=== PATIENT | female | born 1960 | race African-American/Black ===

== ENCOUNTER 2016-11-10 09:43 | Day surgery (SDC) | payer OTHER ==
[2016-10-29 12:24] VITALS: BMI 21.5
[2016-11-10] MEDS ORDERED: ACETAMINOPHEN 325 MG TABLET (FP) PO PRN (14:18)
[2016-11-10] MEDS ORDERED: ONDANSETRON 4 MG/2 ML VIAL IVPUSH PRN (14:19)
[2016-11-10] MEDS: ACETAMINOPHEN 325 MG TABLET (FP) PO PRN (21:44)
[2016-11-10] MEDS ORDERED: traMADol HCL 50 MG TABLET PO ONE ×2 (23:19→23:45)
[2016-11-11] MEDS: ACETAMINOPHEN 325 MG TABLET (FP) PO PRN (04:32)
[2016-11-11 06:21] VITALS: BP 118/54; PULSE 77; TEMP 98.6
[2016-11-11] MEDS ORDERED: traMADol HCL 50 MG TABLET PO ONE (08:40)
--- NOTE | 2016-11-11 10:50 | OP ---
DATE OF OPERATION: 11/10/2016 PREOPERATIVE DIAGNOSIS: Impingement syndrome, rotator cuff tear, right shoulder. POSTOPERATIVE DIAGNOSIS: Impingement syndrome, rotator cuff tear, SLA p tear, right shoulder. PROCEDURE: Right shoulder arthroscopy, debridement of superior labral tear, bursectomy, rotator cuff repair, acromioplasty, and modified distal clavicle excision. SURGEON: Darin Pringle MD GRINDER SET UP OPERATOR INTERNAL: CRISS Covarrubias FINDINGS AND PROCEDURE: The patient was seen in the preoperative holding area, where the right shoulder was marked, informed consent was obtained. An interscalene lock was administered by the anesthesia team. The patient was then brought to the operating room and placed on the table in the beach-chair position. Intravenous sedation was given. The right shoulder was painted with ChloraPrep. Then, 7 mL of 1% lidocaine with epinephrine was injected into the posterior portal region. An 18-gauge spinal needle was used to introduce 40 mL of 1:100,000 epinephrine mixed in normal saline into the glenohumeral joint. The right shoulder was then prepped and free draped in sterile fashion. A time-out was performed identifying the patient and the correct surgical sight. A posterior portal was established, and diagnostic arthroscopy of the shoulder was performed. An anterior portal was established through which a 5.5-mm disposable cannula was passed into the shoulder via the intraarticular triangle. The glenoid and humeral head surfaces were noted to be intact. There was synovitis noted. Some tearing of the posterior-superior labrum was noted. There was evidence of a full-thickness tear of the supraspinatus tendon with medial retraction. The subscapularis tendon was intact, the biceps tendon was intact, and there was no tenosynovitis noted. The 4.5-mm full radius shaver was used to resect the labral tear, and the [place] was used to perform a synovial ablation of hypertrophic and inflamed tissues. The arthroscope was then repositioned into the subacromial space. The anterior portal cannula was repositioned into the subacromial space, and an accessory anterolateral portal was established, through which a 7-mm disposable cannula was passed. A bursectomy was performed with the shaver. We debrided the rotator cuff footprint with the shaver down to a bleeding bony surface. We made a superolateral stab incision and the punch for the Arthrex SwiveLock was used to create 2 bone holes at the medial margin of the rotator cuff footprint. Two SwiveLock anchors were deployed, one with FiberTape and one with TigerTape. We sequentially retrieved each FiberTape and used the Scorpion to pass it through the posterior half of the supraspinatus tendon. The TigerTape was subsequently passed through the anterior half of the tendon in similar fashion. We then retrieved one FiberTape and one TigerTape from the lateral portal cannula. The tapes were loaded onto a lateral row 4.75-mm SwiveLock anchor. We punched a hole in the anterior aspect of the greater tuberosity below the rotator cuff footprint. The two tapes were tensioned, and the anchor was deployed. This provided near full coverage of the rotator cuff footprint. We placed a FiberLink cinch loop for central dog ear, which was noted, and retrieved the cinch loop with the two remaining FiberTapes from the lateral portal cannula. They were loaded onto a 5.5-mm SwiveLock anchor. The tapes were tensioned, and the anchor was deployed. This gave full secure coverage of the rotator cuff tear. An aggressive 5.5-mm shaver was used to resect an anterior subacromial spur, which had been noted on preoperative MRI. There was also evidence of a large distal infraclavicular spur, which was impinging upon the musculotendinous junction of the tendon. A partial distal clavicle excision was subsequently performed. The arthroscopic instruments were removed. The portal incisions were closed using 3-0 Vicryl subcuticular sutures. Steri-Strips, sterile dressings, and ABD pads were applied followed by Medipore tape. The arm was placed in a sling. The patient was revived from sedation and taken to the recovery room in stable condition. TOTAL BLOOD LOSS: Minimal. PATHOLOGY SPECIMENS: Intraarticular shavings. DARIN PRINGLE M.D. [id number] MTDD
== END 2016-11-11 10:33 | disposition home or self-care (01) ==
LOC: FASU 09:43 → FM/S 20:12 → FASU 11-11 10:33
PROVIDERS: ATTEND Orthopaedic Surgery Sports Medicine
PROC: 0LB14ZZ Excision of Right Shoulder Tendon, Percutaneous Endoscopic Approach (ICD-10-PCS; 2016-11-10)
PROC: 0RNJ4ZZ Release Right Shoulder Joint, Percutaneous Endoscopic Approach (ICD-10-PCS; 2016-11-10)
PROC: 0PB94ZZ Excision of Right Clavicle, Percutaneous Endoscopic Approach (ICD-10-PCS; 2016-11-10)
PROC: 0MM14ZZ Reattachment of Right Shoulder Bursa and Ligament, Percutaneous Endoscopic Approach (ICD-10-PCS; principal; 2016-11-10 11:34)
DX: M75.101 Unspecified rotator cuff tear or rupture of right shoulder, not specified as traumatic (principal); M75.41 Impingement syndrome of right shoulder; S43.431A Superior glenoid labrum lesion of right shoulder, initial encounter; X58.XXXA Exposure to other specified factors, initial encounter; Y93.9 Activity, unspecified; Y92.9 Unspecified place or not applicable
CPT/HCPCS: 94760